=== PATIENT | female | born 1950 | race Caucasian/White ===

== ENCOUNTER 2023-02-08 16:10 | Emergency (ER) | payer MEDICARE ==
[2023-02-08] MEDS ORDERED: Mupirocin Oint 22 GM Tube TOP ONE (17:19)
[2023-02-08] MEDS ORDERED: Diphtheria,Pertussis(Acell),Tetanus Vaccine 0.5 ML Syringe IM ONE (17:19)
[2023-02-08] MEDS ORDERED: Lidocaine 1% 30 ML SDV INFILT ONE (17:19)
[2023-02-08] MEDS ORDERED: Lidocaine 1% 5 ML VIAL INJECT ONE (17:22)
[2023-02-08] MEDS ORDERED: Bacitracin Oint 1 GM U/D Packet TOP ONE (17:23)
[2023-02-08] MEDS ORDERED: Cephalexin 500 MG Cap ONE (17:30)
== END 2023-02-08 18:00 | disposition home or self-care (01) ==
LOC: LB.ED 16:10
DX: S61.211A Laceration without foreign body of left index finger without damage to nail, initial encounter (principal); Z90.710 Acquired absence of both cervix and uterus; Z23 Encounter for immunization; W20.8XXA Other cause of strike by thrown, projected or falling object, initial encounter
CPT/HCPCS: 12002; 90471; 90715; 99282; A9270

== ENCOUNTER 2023-06-02 10:46 | Emergency (ER) | payer MEDICARE | END 2023-06-02 11:50 | disposition home or self-care (01) | LOC: LB.ED 10:46 | DX: S01.01XA Laceration without foreign body of scalp, initial encounter (principal); Z90.49 Acquired absence of other specified parts of digestive tract; W01.198A Fall on same level from slipping, tripping and stumbling with subsequent striking against other object, initial encounter | CPT/HCPCS: 12001; 99282; 99283 ==